=== PATIENT | male | born 1960 | race Caucasian/White ===

== ENCOUNTER 2021-11-28 13:01 | Emergency (ER) | payer MEDICAID, SELFPAY ==
[2021-11-28 13:02] VITALS: PULSE 71; RESP 16; TEMP 36.6; O2SAT 100; BMI 24.4
--- NOTE | 2021-11-28 13:24 | CT_ITS ---
EXAM: CT ABDOMEN AND PELVIS WITH INTRAVENOUS CONTRAST CLINICAL INDICATION: abdominal pain TECHNIQUE: Helically acquired images were obtained of the abdomen and pelvis with intravenous contrast. This CT exam was performed using one or more of the following dose reduction techniques: automated exposure control, adjustment of the mA and/or kV according to patient size, and/or use of iterative reconstruction technique. This report was created using [employer] report generation technology. CONTRAST: IV 100mL Isovue-[id number] COMPARISON: None. FINDINGS: LOWER THORAX: Unremarkable. Lung bases are clear. No cardiomegaly. No significant pericardial effusion. ABDOMEN: LIVER: Unremarkable. Homogeneous. No focal mass. GALLBLADDER AND BILE DUCTS: Unremarkable. No calcified gallstones. No gallbladder distention or wall edema. No intra- or extrahepatic biliary ductal dilation. PANCREAS: Unremarkable. No focal cystic or solid mass. SPLEEN: Unremarkable. Normal size without focal cystic or solid mass. ADRENALS: Unremarkable. No nodules. KIDNEYS AND URETERS: Unremarkable. Normal renal size and position. No hydronephrosis. STOMACH AND BOWEL: Unremarkable. No stomach or bowel distention. No focal inflammatory change. PELVIS: APPENDIX: No evidence of acute appendicitis. BLADDER: Unremarkable. REPRODUCTIVE: Unremarkable as visualized. No mass. ABDOMEN and PELVIS: INTRAPERITONEAL SPACE: Unremarkable. No ascites or other fluid collection. No free air. BONES/JOINTS: Unremarkable. No suspicious lytic or blastic abnormality. SOFT TISSUES: Unremarkable. No discrete abdominal or pelvic wall hernia. VASCULATURE: Unremarkable. Abdominal aorta is non-dilated. LYMPH NODES: Unremarkable. No enlarged lymph nodes. CT/Abdomen/Pelvis W IV Cont ONLY IMPRESSION: Negative CT of the abdomen and pelvis with intravenous contrast. Electronically Signed: Edinson Shetty MD at 15:25 EDT ,
--- NOTE | 2021-11-28 13:26 | EX.ED.DYSGE1 ---
HPI <JUNITO Boyd - Last Filed: 11/28/21 16:00> History of Present Illness Chief Complaint: Abd Pain Narrative Narrative: 61-year-old male presents with 2-week history of periumbilical cramping pain and bloating. It seems worse with drinking coffee but is unaffected by food. He has decreased appetite but no nausea or vomiting. He typically has 2-3 daily bowel movements which have been unchanged with no melena or hematochezia. Normal urination. No abdominal surgical history. He states he has no medical problems and takes no medications but has not seen a doctor in years. Denies smoking or drinking alcohol. PFSH <JUNITO Boyd - Last Filed: 11/28/21 16:00> [facility] Medical History (Updated 12/01/21 @ 09:[address] Briana Johnson, DO) Heart attack Home Medications omeprazole 40 mg capsule,delayed release 40 mg PO DAILY #30 caps 11/28/21 [Rx Last Taken Unknown] Allergy/AdvReac Type Severity Reaction Status Date / Time No Known Allergies Allergy Verified 11/28/21 13:06 Surgical History (Updated 11/28/21 @ 13:46 by Irene Ramírez) H/O eye surgery Social History Smoking Status: Never smoker ROS <JUNITO Boyd - Last Filed: 11/28/21 16:00> ROS ED ROS Narrative Constitutional: Negative for fever, chills, malaise. Eyes: Negative for visual change. ENT: Negative for sore throat, ear pain, rhinorrhea. CVS: Negative for palpitations, chest pain, syncope. Respiratory: Negative for shortness of breath, cough, orthopnea. GI: Positive for abdominal pain. Negative for nausea, vomiting, diarrhea, constipation, melena, hematochezia. : Negative for dysuria, hematuria or frequency. Neuro: Negative for headache, motor/sensory dysfunction. Skin: Negative for rash, abscess, or wound. Musc: Negative for joint pain, swelling, trauma. Heme: Negative for easy bruising, bleeding, lymphadenopathy. EXAM <JUNITO Boyd - Last Filed: 11/28/21 16:00> Physical Exam Narrative Exam Narrative: CONST: Patient sitting in no acute distress. EYES: Normal inspection. NECK: Normal inspection. RESP: No respiratory distress, CTAB. CVS: Regular rate and rhythm, no murmur, no gallop. ABD: Soft with epigastric and periumbilical tenderness, no guarding or rebound, mild distention, no hepatosplenomegaly. SKIN: Color normal, no rash, warm, dry, intact. EXTREMITIES: Normal appearance, no pedal edema. NEURO: Oriented x4. PSYCH: Normal affect. Const Vital Signs: 11/28/21 13:02 11/28/21 13:48 11/28/21 15:46 Temperature 98 F Temperature Source Temporal Pulse Rate 71 67 Respiratory Rate 16 Blood Pressure 136/87 H Blood Pressure Mean 103 Pulse Ox 100 97 Oxygen Delivery Method Room Air <Dr. Briana Johnson DO - Last Filed: 12/01/21 09:15> Physical Exam Const Vital Signs: 11/28/21 13:02 11/28/21 13:48 11/28/21 15:46 Temperature 98 F Temperature Source Temporal Pulse Rate 71 67 Respiratory Rate 16 Blood Pressure 136/87 H Blood Pressure Mean 103 Pulse Ox 100 97 Oxygen Delivery Method Room Air MDM <JUNITO Boyd - Last Filed: 11/28/21 16:00> [facility] Narrative Medical decision making narrative: Patient presents with 2-week history of periumbilical abdominal pain. He appears well nontoxic. Afebrile and vital signs within normal limits. He has some mild tenderness in the periumbilical and epigastric region with no guarding or rebound. No right upper quadrant tenderness. Labs are all unremarkable. CT scan also unremarkable. As patient's pain worsens with drinking coffee I suspect gastritis. He did have some improvement with a GI cocktail here. I prescribed omeprazole for home and recommended dietary changes. He was given a PCP for follow-up and discharged in stable condition. Lab Data Attestation: I reviewed the patient's lab results. Labs: Laboratory Results - last 24 hr 11/28/21 11/28/21 13:30 13:30 WBC 4.4 RBC 4.34 L Hgb 14.0 Hct 39.4 L MCV 90.8 MCH 32.3 H MCHC 35.5 RDW Std Deviation 39.8 RDW Coeff of [place] 11.9 Plt Count 206 MPV 10.3 Immature Gran % (Auto) 1.100 H Neut % (Auto) 57.5 Lymph % (Auto) 26.7 [place] % (Auto) 12.2 H Eos % (Auto) 2.0 Baso % (Auto) 0.5 Absolute Neuts (auto) 2.5 Absolute Lymphs (auto) 1.18 Nucleated RBC % 0 Sodium 138 Potassium 4.0 Chloride 108 H Carbon Dioxide 25.0 Anion Gap 5 BUN 14 Creatinine 1.07 Estim Creat Clear Calc 78.57 Est GFR (MDRD) Af Amer 90 Est GFR (MDRD) Non-Af 74 BUN/Creatinine Ratio 13.1 Glucose 100 Calcium 9.6 Total Bilirubin 0.60 AST 21 ALT 26 Alkaline Phosphatase 75 Total Protein 7.7 Albumin 3.9 Globulin 3.8 Albumin/Globulin Ratio 1.0 Lipase 98 Radiography Diagnostic Testing: Clinical Impression(s) from Imaging Studies Abdomen/Pelvis CT 11/28/21 13:24 IMPRESSION: Negative CT of the abdomen and pelvis with intravenous contrast. Electronically Signed: Edinson Shetty MD at 15:25 EDT , <Dr. Briana Johnson, DO - Last Filed: 12/01/21 09:15> [facility] MDM Narrative Medical decision making narrative: Patient presents with 2-week history of periumbilical abdominal pain. He appears well nontoxic. Afebrile and vital signs within normal limits. He has some mild tenderness in the periumbilical and epigastric region with no guarding or rebound. No right upper quadrant tenderness. Labs are all unremarkable. CT scan also unremarkable. As patient's pain worsens with drinking coffee I suspect gastritis. He did have some improvement with a GI cocktail here. I prescribed omeprazole for home and recommended dietary changes. He was given a PCP for follow-up and discharged in stable condition. I have personally performed a face to face assessment of the patient and have reviewed the [place] Note. I performed a substantive portion of the visit including all aspects of the following. My pierre findings include: History is Patient is a 61 year old male with no regular medical care presenting with 2 weeks of periumbilical pain and bloating which has progressed to abdominal distention. He does drink over a pot of coffee daily and has tried to cut back with little improvement . No change in BMs. No associated vomiting. Denies any prior abdominal surgeries. Exam is well appearing male, no acute distress. head NC/AT. MMM. Neck is supple, no JVD. Heart RRR, no murmur. Lungs CTAB. Abdomen soft, mildly distended. No fluid wave. Mild TTP in the epigastric region. Negative [place]'s sign. Normal bowel sounds. Normal muscle tone. AOx3. No focal neuro deficits appreciated. No rash or jaundice. Medical Decision Making Patient evaluated for 2 weeks of periumbilical abdominal pain. Does seem to have a mild correlation with food. No reported night sweats or weight change. Lab work largely unremarkable with normal CBC, CMP, Lipase and UA. CT abd/pelvis negative for acute process. Suspect PUD, gastritis vs H pylori or other upper GI source as the cause of his discomfort. Discussed that GI referral and possible endoscopy would be appropriate for further work up and patient states that he would not do that. Is given PCP referral and started on PPI. Discussed low acid diet. PAtient does feel improved with GI cocktail. Other additions or changes: [None] Lab Data Labs: Laboratory Results - last 24 hr 11/28/21 11/28/21 13:30 13:30 WBC 4.4 RBC 4.34 L Hgb 14.0 Hct 39.4 L MCV 90.8 MCH 32.3 H MCHC 35.5 RDW Std Deviation 39.8 RDW Coeff of [place] 11.9 Plt Count 206 MPV 10.3 Immature Gran % (Auto) 1.100 H Neut % (Auto) 57.5 Lymph % (Auto) 26.7 [place] % (Auto) 12.2 H Eos % (Auto) 2.0 Baso % (Auto) 0.5 Absolute Neuts (auto) 2.5 Absolute Lymphs (auto) 1.18 Nucleated RBC % 0 Sodium 138 Potassium 4.0 Chloride 108 H Carbon Dioxide 25.0 Anion Gap 5 BUN 14 Creatinine 1.07 Estim Creat Clear Calc 78.57 Est GFR (MDRD) Af Amer 90 Est GFR (MDRD) Non-Af 74 BUN/Creatinine Ratio 13.1 Glucose 100 Calcium 9.6 Total Bilirubin 0.60 AST 21 ALT 26 Alkaline Phosphatase 75 Total Protein 7.7 Albumin 3.9 Globulin 3.8 Albumin/Globulin Ratio 1.0 Lipase 98 Radiography Diagnostic Testing: Clinical Impression(s) from Imaging Studies Abdomen/Pelvis CT 11/28/21 13:24 IMPRESSION: Negative CT of the abdomen and pelvis with intravenous contrast. Electronically Signed: Edinson Shetty MD at 15:25 EDT , Discharge Plan Triage Chief Complaint: Abd Pain ED Midlevel Provider: Alexus Corley ED Provider: Briana Johnson Dx/Rx/DC Orders Clinical Impression: Abdominal pain, Abdominal bloating with cramps Instructions: Abdominal Pain, ED Gastritis (Adult) Prescriptions: New omeprazole 40 mg capsule,delayed release(DR/EC) 40 mg PO DAILY Qty: 30 0RF Primary Care Provider: Care Physician,No Primary Referrals: Abhijeet Morales MD [Med Staff - Active Staff] - NOT,DEFINED [NON-STAFF] - Activity Restrictions/Additional Instructions: Your blood work and CT scan look normal. I suspect that you have gastritis which is irritation of the lining of your stomach. Decreased coffee and spicy foods as this worsens gastritis. I prescribed omeprazole to take once a day. This medication does take a while to have an effect so please continue it. Follow-up with a primary care doctor. Disposition Disposition: Home, Self Care
[2021-11-28 13:48] VITALS: BP 136/87
[2021-11-28 13:50] LABS: Absolute Lymphocyte Count 1.18 X10^3/uL (0.83-4.51); Absolute Neutrophil Count 2.5 X10^3/uL (2.0-7.7); Basophil# 0.02 X10^3/uL; Basophil% 0.5 % (0-1); Eosinophil# 0.09 X10^3/uL; Hematocrit 39.4 % (40-54); Lymphocyte # 1.18 X10^3/ul (0.83-4.51); Lymphocyte % 26.7 % (19-41); Mean Corp Hgb Conc 35.5 g/dL (32-36); Mean Corpuscular Hgb 32.3 pg (27.0-32.0); Mean Corpuscular Volume 90.8 fL (80-94); Mean Platelet Vol. 10.3 fl (6.2-12.0); Monocyte# 0.54 X10^3/uL; Monocyte% 12.2 % (0-10); NRBC Flagged by Analyzer 0 % (0-5); Neutrophil # 2.54 X10^3/uL (2.7-7.7); Neutrophil % 57.5 % (47-70); Platelet Count 206 K/mm3 (150-450); RBC Distribution Width CV 11.9 % (11.6-14.6); RBC Distribution Width SD 39.8 fl (35.1-43.9); Red Blood Count 4.34 M/mm3 (4.6-6.2); White Blood Count 4.4 K/mm3 (4.4-11.0)
[2021-11-28 14:09] LABS: AST(SGOT) 21 U/L (15-37); Alanine Aminotransfer ALT/SGPT 26 U/L (16-61); Albumin, Serum 3.9 g/dL (3.2-5.0); Alkaline Phosphatase 75 U/L (45-117); Anion Gap 5 (5-15); BUN 14 mg/dL (7-18); BUN/Creat Ratio 13.1 RATIO (10-20); Calcium,Total 9.6 mg/dL (8.5-10.1); Chloride 108 mmol/L (98-107); Creatinine, Serum 1.07 mg/dL (0.70-1.30); EST Glomerular Filtration Rate 74 mL/min (>60); Est Glom Filt Rate - Afr Amer 90 mL/min (>60); Estimated Creatinine Clearance 78.57 ml/min; Globulin 3.8 g/dL (2.2-4.2); Glucose 100 mg/dL (74-106); Lipase 98 U/L (73-393); Protein, Total 7.7 g/dL (6.4-8.2); Sodium Level 138 mmol/L (136-145)
[2021-11-28] MEDS: Mag Hydrox/Al Hydrox/Simeth 30 ML UDC PO (15:15)
[2021-11-28 15:46] VITALS: PULSE 67; O2SAT 97
== END 2021-11-28 15:46 | disposition home or self-care (01) ==
PROVIDERS: Physician Assistant; Emergency Provider Emergency Medicine; Visit Provider Emergency Medicine
DX: R10.33 Periumbilical pain (principal); R14.0 Abdominal distension (gaseous); I25.2 Old myocardial infarction
CPT/HCPCS: 74177; 80053; 83690; 85025; 99284; Q9967; A4216